=== PATIENT | male | born 1990 | race Caucasian/White ===

== ENCOUNTER 2019-08-30 18:36 | Emergency (ER) | payer OTHER ==
[~2019-08-30] VITALS: Ht 180.3 cm; Wt 90.0 kg
[~2019-08-30 18:36] MED LIST: FLEXERIL PO; NAPROSYN500 MG PO
[2019-08-30] MEDS ORDERED: KEFLEX500 M1 PO (20:16)
[2019-08-30 20:27] VITALS: BP 128/76
== END 2019-08-30 20:26 | disposition home or self-care (01) | DRG 605 ==
LOC: ED 18:36
DX: S91.331A Puncture wound without foreign body, right foot, initial encounter (principal); F17.210 Nicotine dependence, cigarettes, uncomplicated; W45.0XXA Nail entering through skin, initial encounter; Y92.009 Unspecified place in unspecified non-institutional (private) residence as the place of occurrence of the external cause

== ENCOUNTER 2022-09-04 17:26 | Emergency (ER) | payer OTHER ==
[~2022-09-04] VITALS: Ht 180.3 cm; Wt 109.0 kg
[~2022-09-04 17:26] MED LIST changes: +KEFLEX500 M1 PO
[2022-09-04] MEDS ORDERED: MOTRIN800 MG PO (18:52)
[2022-09-04] MEDS ORDERED: PERCOCET 5/325M1 TAB PO (18:52)
[2022-09-04] MEDS ORDERED: FLEXERIL5 M1 PO (18:52)
[2022-09-04 19:12] VITALS: BP 144/104
[2022-09-05] MEDS ORDERED: PERCOCET 5/325M1 TAB PO (15:15)
== END 2022-09-04 19:30 | disposition home or self-care (01) | DRG 552 ==
LOC: ED 17:26
DX: M54.41 Lumbago with sciatica, right side (principal)